=== PATIENT | female | born 1955 | race Caucasian/White ===

== ENCOUNTER → 2018-03-13 | Outpatient (CLI) | payer OTHER ==
--- NOTE | 2018-03-13 19:00 | BD ---
EXAMINATION TYPE: Axial Bone Density DATE OF EXAM: 03/13/2018 COMPARISON: NONE CLINICAL HISTORY: 62-year-old female screening for osteoporosis Height: 66.5 Weight: 170.4 FRAX RISK QUESTIONS: Alcohol (3 or more units per day): no Family History (Parent hip fracture): no Glucocorticoids (More than 3mos): no (Ex: prednisone, prednisolone, methylprednisolone, dexamethasone, and hydrocortisone). History of Fracture in Adulthood: no Secondary Osteoporosis: 1. Type 1 Diabetes: no 2. Hyperthyroidism: no 3. Menopause before 45: no 4. Malnutrition: no 5. Chronic liver disease: no Rheumatoid Arthritis: yes Current Tobacco Use: no RISK FACTORS HISTORY OF: Family History of Osteoporosis: yes Active: yes Diet low in dairy products/other sources of calcium: yes Postmenopausal woman: age 47 Lost more than 2 inches in height since high school: yes MEDICATIONS: Plaquenil, Cymbalta Additional History: pt has had bilateral breast cancer/ cervical cancer EXAM MEASUREMENTS: Bone mineral densitometry was performed using the [employer] System. Bone mineral density as measured about the Lumbar spine is: ----- L1-L4(G/cm2): 1.166 T Score Values are as follows: ----- L2: -1.0 ----- L3: 1.0 ----- L4: -0.5 ----- L1-L4: -0.1 Bone mineral density : baseline Bone mineral density about the R hip (g/cm2): 0.902 Bone mineral density about the L hip (g/cm2): 1.039 T Score values are as follows: -----R Neck: -1.0 -----L Neck: 0.0 -----R Total: -0.5 -----L Total: 0.1 Bone mineral density : baseline IMPRESSION: Normal (Values between +1 and -1 indicate normal bone mass). However, note that measurements border on osteopenia at the right hip. Consider repeating this study in 5 years or sooner if there is some new clinical indication. NOTE: T-SCORE=SD OF THE YOUNG ADULT MEAN.
== END ==
LOC: RADBDWWP 08:28
DX: Z13.820 Encounter for screening for osteoporosis (principal)
CPT/HCPCS: 77080

== ENCOUNTER 2021-05-06 09:19 | Day surgery (SDC) | payer OTHER ==
[2021-05-05 08:19] VITALS: BMI 25.8
[~2021-05-06 09:19] MED LIST: LACTATED RINGERS 1,000 ML IV SCH; LIDOCAINE 1% (10MG/ML) FOR IV START INTRADERMA PRN
[2021-05-06 10:34] VITALS: TEMP 98.2
[2021-05-06] MEDS ORDERED: PROPOFOL 10 MG/ML 20 ML VIAL IV ONE (10:58)
--- NOTE | 2021-05-06 11:13 | P.PCN ---
Date of Procedure: 05/06/21 Procedure(s) Performed: BRIEF HISTORY: Patient is a 65-year-old pleasant white female scheduled for an elective colonoscopy as a part of screening for colon cancer. PROCEDURE PERFORMED: Colonoscopy biopsy. PREOPERATIVE DIAGNOSIS: Screening for colon cancer. IV sedation per Anesthesia. PROCEDURE: After informed consent was obtained, the patient, was brought into the endoscopy unit. IV sedation was administered by Anesthesia under continuous monitoring. Digital rectal examination was normal. Initially the Olympus CF-160 flexible video colonoscope was then inserted in the rectum, gradually advanced into the cecum without any difficulty. Careful examination was performed as the scope was gradually being withdrawn. Ileocecal valve and the appendiceal orifice were visualized and appeared normal. Prep was excellent. Mucosa of the cecum, ascending colon, transverse colon, descending colon, sigmoid colon, and rectum appeared normal. The sigmoid colon there was a 3 mm polyp that was removed by cold biopsy. Retroflexion was performed in the rectum and no lesions were seen. The patient tolerated the procedure well. IMPRESSION: 3 mm; sigmoid polyp status post cold biopsy Rest of the colon appeared normal RECOMMENDATIONS: Findings of this examination were discussed with the patient as well as her family. She was advised to follow with the biopsy results. If the biopsy reveals adenoma she can have a repeat colonoscopy in 5 years..
[2021-05-06 11:27] VITALS: RESP 18
[2021-05-06] MEDS ORDERED: ALBUTEROL NEBULIZED 2.5 MG/3 ML INHALATION ONE ×2 (11:27→11:32)
[2021-05-06 12:00] VITALS: BP 137/82; PULSE 85
== END 2021-05-06 12:18 | disposition home or self-care (01) ==
LOC: ORWHC2ENDO 09:19
PROVIDERS: ATTEND Internal Medicine Gastroenterology
DX: Z12.11 Encounter for screening for malignant neoplasm of colon (principal); M79.7 Fibromyalgia; Z79.899 Other long term (current) drug therapy
CPT/HCPCS: 88305; 45380; J2704